=== PATIENT | female | born 1980 | race Caucasian/White ===

== ENCOUNTER 2016-09-21 22:07 | Emergency (ER) | payer MEDICAID, OTHER ==
[~2016-09-21] VITALS: Ht 162.6 cm; Wt 81.8 kg
[2016-09-21 22:12] VITALS: BP 119/75; PULSE 98; RESP 16; O2SAT 98
--- NOTE | 2016-09-21 22:18 | ED.REPORT ---
HPI-URI / Cough / Cold Date of Service September 21, 2016 ED Provider: Darren Leavitt Patient is a 36 year old female who presents to the ED complaining of flu-like symptoms onset 2 days ago. Associated symptoms include fever, nausea, abdominal pain, chills, fatigue, and myalgia. She denies vomiting, dysuria, or any other symptoms. She has been in the hospital for the past 4 days because her had pneumonia. She takes Vyvanse daily. Nursing Notes Stated Complaint: CHEST PAIN/ FEVER Chief Complaint: FLU/Cold Symptoms Nursing Notes Reviewed: Yes Allergies: Coded Allergies: No Known Allergies (Unverified , 09/21/16) Scheduled Azithromycin (Zithromax (Z-Topher)) 250 Mg Tablet 250 MG PO DIRECTED Take two tablets by mouth on day 1, then take one tablet daily on days 2 through 5. General Time Seen by MD: 22:18 Chief Complaint Other (flu-like symptoms ) Hx Obtained From: Patient Arrived By: Walk-in Onset Occurred: 2 days ago Symptom Duration: Since onset Context: Immunization Status General: Unknown Past Medical History Past Medical History ADD Past Surgical History Denies Smoking History Never Smoker Social History Alcohol Use: Denies alcohol use Other Social History: Good social support, Ambulatory Status Independent Review of Systems Constitutional: Reports: Chills, Fatigue, Fever GI: Reports: Abdominal pain, Nausea, Denies: Vomiting Complete sys rev & neg: except as marked. Female: Denies: Dysuria Musculoskeletal: Reports: Myalgia Physical Exam Initial Vital Signs Vital Signs (First) Date Time Temp Pulse Resp B/P Pulse Ox O2 Delivery O2 Flow Rate FiO2 09/21/16 22:12 36.7 98 16 119/75 98 Room Air Initial VS: Reviewed, Vital signs normal Head / Eyes: Atraumatic, Normocephalic Neck: Full range of motion Skin: Warm, Dry Neurologic: Alert, Oriented, Nonfocal General/Constitutional: Awake, Alert, No acute distress, Well developed Lips slightly dry ENT: Airway patent Respiratory / Chest: Breath sounds NL, Breath sounds = bilat, No respiratory distress Good air movement. Cardiovascular: Heart rate NL, Regular rhythm, Heart sounds NL, No gallop, No murmurs, No rubs Abdomen: Soft, Non-tender Back: No CVA tenderness Interpretation & Diagnostics Lab Results Interpretation Result Diagram: 09/21/16223409/21/162234 Test 09/21/16 22:35 09/21/16 22:45 White Blood Count 4.9th/mm3 (3.8-10.1) Red Blood Count 3.96mil/mm3 (3.90-5.20) Hemoglobin 11.7g/dL (12.0-15.6) Hematocrit 35.1% (35.0-46.0) Mean Corpuscular Volume 88.6fL (81-100) Mean Corpuscular Hemoglobin 29.5pg (27.0-35.0) Mean Corpuscular Hemoglobin Concent 33.3% (32.0-37.0) Red Cell Distribution Width 12.6% (12.3-15.4) Platelet Count 189bil/L (150-400) Neutrophils (%) (Auto) 66.8% (40-74) Lymphocytes (%) (Auto) 25.6% (14-46) Monocytes (%) (Auto) 7.2% (4-12) Eosinophils (%) (Auto) 0% (0-5) Basophils (%) (Auto) 0.2% (0-3) Band Neutrophils % 0% (1-5) Sodium Level 136mEq/L (134-144) Potassium Level 3.4mEq/L (3.5-5.2) Chloride Level 100mEq/L (97-108) Carbon Dioxide Level 20mmol/L (18-29) Blood Urea Nitrogen 9mg/dL (6-20) Creatinine 0.57mg/dL (0.57-1.00) Estimat Glomerular Filtration Rate 171mL/min (>59) Glucose Level 112mg/dL (60-99) Calcium Level 8.7mg/dL (8.5-10.1) Magnesium Level 1.8mg/dL (1.6-2.6) Total Bilirubin 0.2mg/dL (0.0-1.2) Aspartate Amino Transf (AST/SGOT) 16U/L (0-50) Alanine Aminotransferase (ALT/SGPT) 13U/L (0-32) Alkaline Phosphatase 52U/L (25-150) Troponin T 0.010ug/L (0.0-0.011) Total Protein 7.2g/dL (6.4-8.4) Albumin 3.9g/dL (3.4-5.0) Hold Devries Top Tube Received (Received) Hold Urine Received (Received) Lab values outside NL range: no clinical significance. Lab Results Interpretation: Flu A & B negative ECG Interpretation ECG Interpretation: Sinus rate 95 Time: 22:48 Interpreted by: ED physician X-Ray Chest Interpretation Chest Xray Interpretation: L lower lobe pneumonia View: AP & lat Interpretation / Wet Read by: Interpret - ED physician Re-Eval/Medical Decision Med Decision/Clinical Course 36-year-old female with left lower lobe pneumonia without criteria for hospitalization. It is concerning that her was recently admitted for pneumonia, but I see no reason at this time to suspect an unusual causative agent. Re-Evaluation/Progress : Time of Eval: 23:51 Re-Evaluation/Progress Note: Rechecked patient. Discussed lab and imaging results. Discussed plan for discharge. Patient understands and agrees with plan. All questions addressed at this time. Counseled Regarding: Diagnosis, Lab results, Need for follow-up, When/why to return to ED Discharge & Departure Impression: Primary Impression: Pneumonia Pneumonia type: due to unspecified organism Laterality: left Lung location : lower lobe of lung Qualified Code: J18.1 - Lobar pneumonia, unspecified organism Disposition: Home Discharge Condition All VS Reviewed: Yes Condition: Stable Additional Instructions: You have a left lower lobe pneumonia. You were given first doses of IV antibiotics here in the emergency room (azithromycin and Rocephin). Follow this with prescription for azithromycin 250 mg, one pill daily for 4 more days, #4 prescribed. Drink plenty of fluids. Tylenol and/or ibuprofen as needed for discomfort. Follow-up with your regular doctor in the next 2 or 3 days if not improving. Call me at [phone] between the hours of 9 PM and 6 AM for the next couple of days if you have any questions or concerns. Referrals: OTHER,PHYSICIAN Scribe Attestation Portions of this note were transcribed by Jonathan Almanzar. I, Dr. Leavitt personally performed the history, physical exam and medical decision-making; I reviewed and confirmed the accuracy of the information in the transcribed note. Signed by: Jonathan Almanzar 09/22/16, 0035 Darren Leavitt MD September 21, 2016 22:18 JONATHAN ALMANZAR September 21, 2016 22:29
[2016-09-21 22:51] LABS: BASOPHILS % (AUTO) 0.2 % (0-3); EOSINOPHILS % (AUTO) 0 % (0-5); MONOCYTES % (AUTO) 7.2 % (4-12); Mean Corpuscular Hemoglobin 29.5 pg (27.0-35.0); Mean Corpuscular Volume 88.6 fL (81-100); NEUTROPHILS % (AUTO) 66.8 % (40-74); Platelet Count 189 bil/L (150-400)
[2016-09-21 23:23] LABS: Magnesium 1.8 mg/dL (1.6-2.6); TROPONIN T 0.01 ug/L (0.0-0.011)
[2016-09-21] MEDS ORDERED: cefTRIAXone Inj 2,000 MG in Dextrose 5% Minibag Plus 50 ML IV ONE (23:55)
[2016-09-21] MEDS ORDERED: Azithromycin Inj 500 MG in Dextrose 5% w/Vial Mate 250 ML IV ONE (23:55)
[2016-09-22] MEDS ORDERED: AZIT250T4 PO (00:32)
[2016-09-22 02:06] VITALS: BP 104/64; PULSE 71; RESP 16; O2SAT 100
--- NOTE | 2016-09-22 07:45 | DRSVH ---
PROCEDURE: X-RAY CHEST, TWO VIEWS ([id number]) INDICATIONS: cough, fever TECHNIQUE: 2 views of the chest were acquired. COMPARISON: [facility], , CHEST 2 VIEW, 03/09/2015, 21:18. FINDINGS: Surgical changes and devices: None. Lungs and pleura: No pleural effusions or pneumothorax. Mild patchy airspace opacity at the left lat eral lung base. Mediastinum: Mediastinal contours are normal. Heart size is normal. Bones and chest wall: No suspicious bony abnormalities. Soft tissues appear unremarkable. IMPRESSION: Left lung base pneumonia. Follow up plain films of the chest are recommended to ensure re solution, and to exclude underlying or central malignancy. Dictated by: Vivian Flores M.D. on 09/22/2016 at 7:43 Approved by: Vivian Flores M.D. on 09/22/2016 at 7:43
== END 2016-09-22 02:07 | disposition home or self-care (01) ==
LOC: SED 22:07
DX: J18.1 Lobar pneumonia, unspecified organism (principal); R50.9 Fever, unspecified; R11.0 Nausea; R10.9 Unspecified abdominal pain; R53.83 Other fatigue; M79.1 Myalgia
CPT/HCPCS: 36415; 71020; 80053; 81025; 83735; 84484; 85025; 87804; 93005; 96365; 96368; 99285; J0456; J0696